=== PATIENT | female | born 1960 ===

== ENCOUNTER → 2017-01-18 11:59 | Outpatient (CLI) | payer MEDICAID ==
[2017-01-18 14:25] LABS: C-REACTIVE PROTEIN 1.9 mg/dL (0.0-0.9)
[2017-01-18 14:32] LABS: HEMOGLOBIN A1C 4.8 % (4.8-6.0)
[2017-01-18 15:11] LABS: ERYTHROCYTE SEDIMENTATION RATE 38 mm/hr (0-30)
[2017-01-22 14:43] LABS: ANCA - ANTIMYELOPEROXIDASE <9.0 U/mL (0.0-9.0); ANCA - ANTIPROTEINASE 3 <3.5 U/mL (0.0-3.5); ANCA - ATYPICAL <1:20 titer (Neg:<1:20); ANCA - CYTOPLASMIC <1:20 titer (Neg:<1:20); ANCA - PERINUCLEAR <1:20 titer (Neg:<1:20)
== END | disposition home or self-care (01) ==
LOC: D.LABREF 11:59
PROVIDERS: Student in an Organized Health Care Education/Training Program
DX: R50.9 Fever, unspecified (principal); R53.81 Other malaise